=== PATIENT | female | born 1990 | race Caucasian/White ===

== ENCOUNTER 2019-01-18 07:32 | Emergency (ER) | payer BC ==
[~2019-01-18] VITALS: Ht 165.1 cm; Wt 68.0 kg
[2019-01-18] MEDS ORDERED: TETANUS, DIPHTHERIA, PERTUSSIS VAC/PF 0.5ML (>7YR OLD) IM ONE (08:15)
[2019-01-18 09:10] LABS: BASOPHILS % 1.3 % (0.0-2.0); CHLORIDE 101 mEq/L (98-107); EOSINOPHILS % 1.5 % (0.0-5.0); HEMOGLOBIN. 13.7 g/dL (12.0-16.0); MEAN CORPUSCULAR HEMOGLOBIN 29.9 pg (28.0-32.0); MEAN CORPUSCULAR VOLUME 89.6 fL (81.0-99.0); MEAN PLATELET VOLUME 7.7 fl (7.4-10.4); MONOCYTES % 7.1 % (2.0-8.0); NEUTROPHILS % 80.1 % (40.0-76.0); PLATELET 309 x1000/uL (130-400); RED BLOOD CELL COUNT 4.57 mill/uL (4.2-5.4); RED CELL DISTRIBUTION WIDTH 14.4 % (11.6-14.6)
[2019-01-18 09:11] LABS: INR 1.1; PROTHROMBIN TIME 11.4 sec (9.6-11.0)
[2019-01-18 09:14] LABS: ETHANOL BLOOD < 10 mg/dL
[2019-01-18 11:00] LABS: HCG SCREEN NEGATIVE
[2019-01-18 12:41] LABS: CREATINE KINASE 144 IU/L (26-192)
[2019-01-18] MEDS ORDERED: LIDOCAINE HCL/EPINEPHRINE 1%-EPI 1:100,000 20 ML VIAL INFIL ONE (15:00)
[2019-01-18] MEDS ORDERED: HALOPERIDOL LACTATE 5MG/ML VIAL IM ONE (19:30)
[2019-01-18] MEDS ORDERED: LORAZEPAM 2MG/ML CPJ IM ONE (19:30)
[2019-01-18] MEDS ORDERED: DIPHENHYDRAMINE 50MG/ML VIAL IM ONE (19:30)
[2019-01-18 21:45] LABS: CLARITY URINE CLEAR (CLEAR); COLOR URINE YELLOW (YELLOW); KETONES URINE 4+ (NEGATIVE); LEUKOCYTE ESTERASE URINE NEGATIVE (NEGATIVE); NITRITE URINE NEGATIVE (NEGATIVE); OCCULT BLOOD URINE 1+ (NEGATIVE); PH URINE 6.5 (4.5-8.0); PROTEIN URINE NEGATIVE (NEGATIVE); UROBILINOGEN URINE 0.2 E.U./dL (0.2-1.0)
[2019-01-18 21:58] LABS: *AMPHETAMINES SCREEN URINE NEGATIVE (NEGATIVE); *BARBITURATES SCREEN URINE NEGATIVE (NEGATIVE); *BENZODIAZEPINES SCREEN URINE NEGATIVE (NEGATIVE); *COCAINE SCREEN URINE NEGATIVE (NEGATIVE)
[2019-01-18 21:59] LABS: METHADONE URINE SCREEN NEGATIVE (NEGATIVE); OPIATES URINE SCREEN NEGATIVE (NEGATIVE); PHENCYCLIDINE URINE SCREEN NEGATIVE (NEGATIVE)
[2019-01-18 22:02] LABS: CANNABINOID URINE SCREEN PRESUMTIVE POSITIVE (NEGATIVE)
[2019-01-19] MEDS ORDERED: POTASSIUM CHLORIDE 20MEQ TABLET SR PO ONE (11:45)
[2019-01-19] MEDS ORDERED: POTASSIUM CHLORIDE 20MEQ TABLET SR PO NR (16:00)
[2019-01-20] MEDS ORDERED: ONDANSETRON 4MG ODT PO ONE (04:45)
[2019-01-22] MEDS ORDERED: LORAZEPAM 2MG/ML CPJ IM ONE (15:15)
[2019-01-22] MEDS ORDERED: OLANZAPINE 10 MG/VIAL IM ONE (15:15)
[2019-01-23] MEDS ORDERED: LORAZEPAM 1MG TABLET PO ONE (22:15)
[2019-01-23] MEDS ORDERED: OLANZAPINE 5MG TABLET ODT PO ONE (22:15)
[2019-01-23] MEDS ORDERED: OLANZAPINE 10 MG/VIAL IM ONE (23:00)
[2019-01-23] MEDS ORDERED: DIPHENHYDRAMINE 25MG CAPSULE PO ONE (23:00)
[2019-01-23] MEDS ORDERED: LORAZEPAM 2MG/ML CPJ IM ONE (23:00)
[2019-01-24] MEDS ORDERED: LORAZEPAM 1MG TABLET PO ONE (11:00)
[2019-01-24 14:35] VITALS: BP 110/81
[2019-01-28 13:15] LABS: BARBITURATE SCREEN Negative ug/mL (Cutoff:0.1); BENZODIAZEPINE SCREEN Negative ng/mL (Cutoff:20); OPIATES SCREEN Negative ng/mL (Cutoff:5); PHENCYCLIDINE SCREEN Negative ng/mL (Cutoff:8)
== END 2019-01-24 15:05 ==
LOC: ER 07:32 → CANBEDREQ 14:04 → ER 01-24 15:05
DX: S02.2XXA Fracture of nasal bones, initial encounter for closed fracture (principal); S01.511A Laceration without foreign body of lip, initial encounter; R41.82 Altered mental status, unspecified; F41.9 Anxiety disorder, unspecified; F43.10 Post-traumatic stress disorder, unspecified; R45.851 Suicidal ideations; Z75.1 Person awaiting admission to adequate facility elsewhere; Z78.1 Physical restraint status; Y35.893A Legal intervention involving other specified means, suspect injured, initial encounter; Y93.89 Activity, other specified; Y92.520 Airport as the place of occurrence of the external cause
CPT/HCPCS: 36415; 70450; 70486; 72125; 80053; 80305; 80307; 80320; 80329; 81003; 81025; 82550; 84443; 84703; 85025; 85610; 93005; 96372; 99285; J1200; J1630; J2060; J3490; Z7610; 90715; G0480